=== PATIENT | female | born 1995 | race Caucasian/White ===

== ENCOUNTER 2018-11-05 09:29 | Emergency (ER) | payer SELFPAY ==
[2018-11-05 09:30] VITALS: BP 109/71; PULSE 96; RESP 18; TEMP 36.6; O2SAT 99; BMI 19.7
--- NOTE | 2018-11-05 09:41 | ED.DCSUM_ITS ---
History of Present Illness Chief Complaint: Lower Extremity Injury Informant: Patient Onset: Today Context: Sudden Onset Timing: Continuous Quality: Pain Location: Lateral right ankle Current Severity: Mild Maximum Severity: Moderate Worsened by: Movement and weightbearing Relieved by: Rest Associated Symptoms: Difficulty ambulating Narrative: Patient is 23-year-old woman with history of migraine headaches who presents after slipping in the shower. She injured her right ankle. She denies paresthesia, anesthesia medics. She denies hip or knee pain. She denies abdomen, back or neck pain. She denies hitting her head. Prior similar symptoms: No Recent Illness/Hospitalization: No - Past Medical History (1) History of migraine headaches Status: Acute Past Medical History - Allergies and Home Meds Allergies/Adverse Reactions: Allergies bee venom protein (honey bee) Allergy (Verified 11/05/18 09:32) Anaphylaxis Primary Care Physician: NOT,DEFINED [NON-STAFF] - Prior records reviewed: No Past Medical History: - - Migraine headaches Surgical History: no surgical history Lives: Alone Smoking Status: Never smoker Alcohol: Rare Review of Systems Cardiovascular: Denies: Chest pain Respiratory: Denies: Dyspnea Gastrointestinal: Denies: Nausea, Vomiting Musculoskeletal: Reports: Swelling, Extremity Pain. Denies: Myalgias, Arthralgias, Neck pain, Back pain Skin: Denies: Rash, Abscess, Abrasions, Wounds Neurological: Denies: Weakness, Parasthesia, Numbness Hematologic: Denies: Easy bruising, Easy bleeding Physical Exam Vital Signs/Narrative: Vital Signs Temp Pulse Resp BP Pulse Ox 11/05/18 09:30 97.9 F 96 18 109/71 99 Inital Vital Signs reviewed: Yes General: Well nourished, Well developed, No Acute Distress Head: Normocephalic, Atraumatic Eyes: Perrl, EOMI. Negative for: Pale conjunctiva, Scleral icterus, - ENT: Moist mucous membranes, No rhinorrhea Neck: Supple Cardiovascular: Regular rate, Regular rhythm Respiratory: No distress Back: Nontender, Normal Inspection Extremities: No edema, - - There is swelling over the lateral malleolus with pain outpatient distal 4 cm of the lateral malleolus. there is no pain of the medial malleolus. No laxity with drawer testing. There is no pain palpation of the base of the fifth metatarsal. DP and PT pulses are palpable.. Negative for: Nontender Skin: Normal color, Trauma Neurological: Alert, Oriented x3, Cranial nerves II-XII grossly intact, Normal Strength, Normal Sensation. Negative for: Normal Gait Psychological: Normal affect Diagnostic/Tx/Re-eval Chest X-Ray - ED: Read by ED Physician, - - X-ray of the ankle interpreted by me as negative for fracture, subluxation or dislocation. The base of the fifth metatarsal is normal. There is soft tissue swelling noted. - Medical Decision Making Since there is pain to palpation posterior distal 4 cm of the lateral malleolus per the [place] ankle rule imaging was obtained. Patient was offered pain medicine, which she declined. Patient with right ankle sprain. Will treat with NSAID Aircast and appropriate home-going instructions ED Disposition - Plan for ED Patient: Disposition: Home or Assisted Living Diagnosis: Sprain of calcaneofibular ligament of right ankle, initial encounter Instructions: ED Sprain Ankle W X Ray Referrals: NOT,DEFINED [NON-STAFF] - Doctor,Your [STAFF PHYSICIAN] - 10-14 Days if not better Additional Instructions: Wear Aircast during the day. No high heels, lateral work or going up inclines. Elevate ankle as much as possible for the next 2 to 3 days. Apply ice 20 to 30 minutes per application 6-8 times a day. Take either 4 Advil every 8 hours or 2 Aleve every 12 hours for the next 3 to 5 to control your pain.
--- NOTE | 2018-11-05 09:45 | RAD_ITS ---
STUDY: X-RAY - RIGHT ANKLE REASON FOR EXAM: Female, 23 years old. Lateral soft tissue swelling following the fall. TECHNIQUE: 3 view(s) of the ankle. COMPARISON: None. FINDINGS: Normal visualized distal tibia and fibula. Normal medial and lateral malleoli. Normal tibiotalar articulation and ankle mortise. Normal visualized talus and calcaneus. The visualized subtalar, talonavicular, calcaneocuboid and tarsal articulations are normal. Soft tissue swelling overlying the lateral malleolus. RAD/Ankle min 3 Views IMPRESSION: Soft tissue swelling overlying the lateral malleolus. Electronically Signed: Cedric Boswell, at 10:04 EDT , Service support ,
== END 2018-11-05 10:26 | disposition home or self-care (01) ==
PROVIDERS: Emergency Provider Emergency Medicine
DX: S93.411A Sprain of calcaneofibular ligament of right ankle, initial encounter (principal); W18.2XXA Fall in (into) shower or empty bathtub, initial encounter; Y93.E1 Activity, personal bathing and showering; Y92.002 Bathroom of unspecified non-institutional (private) residence as the place of occurrence of the external cause; Y99.8 Other external cause status
CPT/HCPCS: 73610; 99283